=== PATIENT | male | born 1980 | race Caucasian/White ===

== ENCOUNTER 2019-02-10 13:29 | Emergency (ER) | payer OTHER, SELFPAY ==
[2019-02-10 13:35] VITALS: BP 112/67; PULSE 80; RESP 15; TEMP 36.9; O2SAT 99; BMI 22.4
--- NOTE | 2019-02-10 14:18 | ED_ITS ---
HPI - Wound/Laceration <NAPOLEON Murray - Last Filed: 02/10/19 14:52> General Chief Complaint: Wound/Laceration Stated Complaint: back of left hand laceration today/L&I Time Seen by Provider: 02/10/19 13:57 Source: patient Mode of arrival: Ambulatory Limitations: no limitations History of Present Illness HPI narrative: This is a 38-year-old male, smoker, who presents to ED after a w ork injury on his left hand laceration on the base of 2nd finger from a metal sheet today. No active bleeding at this time patient is able to move his fingers without difficulty. Patient states right dominant hand. Patient reports unsure of last tetanus immunization. Related Data Allergies Allergy/AdvReac Type Severity Reaction Status Date / Time No Known Drug Allergies Allergy Verified 02/10/19 13:35 Review of Systems <NAPOLEON Murray - Last Filed: 02/10/19 14:52> Review of Systems ROS Unobtainable: All systems reviewed & are unremarkable except as noted in HPI and below PFSH <NAPOLEON Murray - Last Filed: 02/10/19 14:52> Medical History No significant past medical history (Acute) Surgical History No pertinent past surgical history (Acute) Social History Smoking Status: Current every day smoker Social History Smoking Status: Current every day smoker Exam <NAPOLEON Murray - Last Filed: 02/10/19 14:52> Narrative Exam Narrative: General appearance: well developed, well nourished, in no acute distress. Head: normocephalic, atraumatic, no scalp lesions, non-tender. Eye: pupil equal, round. EOMI. Nose: nares patent. Oral: mucosa moist. Neck/Thyroid: neck supple, full range of motion, no visible masses. Skin: 1 cm laceration on left 2nd digit dorsal aspect on the base of finger. No suspicious rashes, lesions over visible areas. Warm and dry. Heart: no clubbing, no cyanosis, no edema. Lungs: Breathing even and unlabored. No stridor. No accessory muscles used. Chest: normal shape and expansion. Abdomen: non-obese, non-distended. Neurologic: alert and oriented. Cognitive exam, [employer] and PNS grossly intact on informal exam. Psych: good eye contact, normal affect. Initial Vital Signs Initial Vital Signs: Vital Signs Temperature 98.5 F 02/10/19 13:35 Pulse Rate 80 02/10/19 13:35 Respiratory Rate 15 02/10/19 13:35 Blood Pressure 112/67 02/10/19 13:35 Pulse Oximetry 99 02/10/19 13:35 Extrem Left upper extremity: hand Details: abnormal to inspection, neuromotor exam normal, tendon exam normal, vascular exam Details: radial pulse present and normal capillary refill, normal ROM of fingers, no swelling and laceration (1 cm dorsal aspect base of 2nd digit); no foreign bodies <Denise Lugo DO - Last Filed: 02/11/19 08:33> Initial Vital Signs Initial Vital Signs: Vital Signs Temperature 98.5 F 02/10/19 13:35 Pulse Rate 80 02/10/19 13:35 Respiratory Rate 15 02/10/19 13:35 Blood Pressure 112/67 02/10/19 13:35 Pulse Oximetry 99 02/10/19 13:35 Procedures <NAPOLEON Murray - Last Filed: 02/10/19 14:52> Laceration Repair Laceration 1: Site: hand Side (If applicable): left Size (cm): 1 Description: linear Depth: simple, single layer Local Anesthetic: lidocaine 1% and with bicarb Amount of anesthesia used (mL): 1 Pre-repair: wound explored and irrigated extensively Skin layer closed with: nylon Size (cm): 4-0 Number of sutures: 2 Technique: simple, interrupted Course <NAPOLEON Murray Last Filed: 02/10/19 14:52> Orders Ordered: Discontinued Medications Bacitracin (Bacitracin) 1 applic TOP NOW ONE Stop: 02/10/19 14:10 Last Admin: 02/10/19 14:26 Dose: 1 applic Documented by: BTONER Diphtheria/Tetanus/Acell Pertussis (Adacel) 0.5 ml IM .ONCE ONE Stop: 02/10/19 13:42 Lidocaine/Sodium Bicarbonate (Buffered Lidocaine 10 Ml Syr) 10 ml INJ NOW ONE Stop: 02/10/19 14:10 Last Admin: 02/10/19 14:28 Dose: 10 ml Documented by: BTONER Vital Signs Vital signs: Vital Signs - 8 hr 02/10/19 13:35 Temperature 98.5 F Pulse Rate 80 Respiratory Rate 15 Blood Pressure 112/67 Pulse Oximetry 99 <Denise Lugo DO - Last Filed: 02/11/19 08:33> Orders Ordered: Discontinued Medications Bacitracin (Bacitracin) 1 applic TOP NOW ONE Stop: 02/10/19 14:10 Last Admin: 02/10/19 14:26 Dose: 1 applic Documented by: BTONER Diphtheria/Tetanus/Acell Pertussis (Adacel) 0.5 ml IM .ONCE ONE Stop: 02/10/19 13:42 Lidocaine/Sodium Bicarbonate (Buffered Lidocaine 10 Ml Syr) 10 ml INJ NOW ONE Stop: 02/10/19 14:10 Last Admin: 02/10/19 14:28 Dose: 10 ml Documented by: BTONER Vital Signs Vital signs: Vital Signs - 8 hr 02/10/19 13:35 Temperature 98.5 F Pulse Rate 80 Respiratory Rate 15 Blood Pressure 112/67 Pulse Oximetry 99 MDM - Wound/Laceration <NAPOLEON Murray - Last Filed: 02/10/19 14:52> Differential Diagnosis Differential diagnosis: Likely laceration Medical Records Attestation: I reviewed the patient's medical records. MDM Narrative Medical decision making narrative: This is a 38-year-old gentleman who has 1 cm laceration in dorsal aspect of left base of 2nd digit. Laceration has been repaired with 2 stitches. Patient able to move affected finger against resistance. No foreign body seen. Please see procedural notes. Tdap has been updated today. Return precautions were discussed with the patient such as signs and symptoms for infection. Suture removal in 7-10 days. Discharge Plan Departure Patient Disposition: Home Clinical Impression: Laceration of hand Qualifiers: Encounter type: initial encounter Foreign body presence: without foreign body Laterality: left Qualified Code(s): S61.412A - Laceration without foreign body of left hand, initial encounter Discharge Date/Time: 02/10/19 14:58 Instructions: DI for Laceration Repair Activity Restrictions/Additional Instructions: You have been diagnosed with [laceration on left dorsal hand]. What to do: *Take your medications as directed. You can take [id number] Tylenol and or Motrin as needed if you have discomfort. Please do not get your wound soaked in the water until suture removal. Keep your dressing intact for next 24 hrs. After then, you could remove your dressing, wash with soap and water. Pat dry with clean paper towel and dress it with antibiotic ointment. You can change dressing as needed and daily. Please monitor for signs and symptoms for infection such as increasing redness, swelling, warmth, pain, fever, purulent discharge. If this occurs, please return to ED or follow up with your primary care physician since your wound may be gotten infected. Please follow up with your primary care provider in 2-3 days for recheck wound. Your suture should be removed [ 7-10 ] days. This can be done by your primary provider, walk-in clinic or here in ED. Please keep your wound clean, dry and intact all times. Stand Alone Forms: Work Release Note
[2019-02-10] MEDS: BACITRACIN OINT 0.9 GM PCKT 1 APPLIC TOP (14:26)
[2019-02-10] MEDS: LIDO 1%/SOD BICARB 8.4% (10ML) 10 ML SYRINGE INJ (14:28)
--- NOTE | 2019-02-10 15:08 | PC.NURSE ---
pt was discharged before tetanus was given. have called twice with no answer. will try again.
--- NOTE | 2019-02-10 21:15 | PC.NURSE ---
attempted another phone call to [phone], no answer and unable to leave a message.
== END 2019-02-10 14:58 | disposition home or self-care (01) ==
PROVIDERS: Emergency Provider Nurse Practitioner Family
DX: S61.412A Laceration without foreign body of left hand, initial encounter (principal); Y99.0 Civilian activity done for income or pay
CPT/HCPCS: 12001; 99282; 99283; 90715